=== PATIENT | male | born 1990 | race Caucasian/White ===

== ENCOUNTER → 2017-08-23 | Outpatient (REF) | payer SELFPAY, OTHER | LOC: M SFHCLERA 16:27 | DX: L08.9 Local infection of the skin and subcutaneous tissue, unspecified (principal); B95.0 Streptococcus, group A, as the cause of diseases classified elsewhere | CPT/HCPCS: 87186 ==

== ENCOUNTER → 2019-06-23 | Outpatient (CLI) | payer OTHER ==
--- NOTE | 2019-06-23 15:53 | REP ---
RIGHT FOREARM, TWO VIEWS: There is no evidence of an acute fracture, dislocation or intrinsic bone disease. IMPRESSION: No fracture or dislocation. Electronically Signed by Gino Waggoner MD 06/24/2019 03:56 P
--- NOTE | 2019-06-23 15:54 | REP ---
RIGHT HAND, FOUR VIEWS: There is no evidence of an acute fracture, dislocation or intrinsic bone disease. IMPRESSION: No fracture or dislocation. Electronically Signed by Gino Waggoner MD 06/24/2019 03:56 P
== END ==
LOC: M LRY 14:18
PROVIDERS: ATTEND Physician Assistant
DX: S59.911A Unspecified injury of right forearm, initial encounter (principal); S69.91XA Unspecified injury of right wrist, hand and finger(s), initial encounter; X58.XXXA Exposure to other specified factors, initial encounter

== ENCOUNTER → 2020-09-03 | Outpatient (REF) | payer BC, MEDICAID | LOC: M SMT 18:46 | PROVIDERS: ATTEND Urology | DX: Z30.2 Encounter for sterilization (principal) ==